=== PATIENT | female | born 2000 | race Caucasian/White ===

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

== ENCOUNTER 2021-05-13 18:00 | Emergency (ER) | payer SELFPAY ==
[~2021-05-13] VITALS: Ht 162.6 cm; Wt 70.2 kg
[~2021-05-13 18:00] MED LIST changes: +ULTRAM50 M1 PO
[2021-05-13] MEDS ORDERED: MELATONIN10 M2 PO (18:14)
[2021-05-13 19:30] VITALS: BP 101/64
== END 2021-05-13 19:30 | disposition home or self-care (01) ==
LOC: ED 18:00
DX: S83.012A Lateral subluxation of left patella, initial encounter (principal); X50.1XXA Overexertion from prolonged static or awkward postures, initial encounter
CPT/HCPCS: J1885

== ENCOUNTER → 2021-07-18 | Outpatient (CLI) | payer SELFPAY ==
[~2021-07-18] MED LIST changes: +MELATONIN10 M2 PO
== END ==
LOC: LAB 19:56
DX: Z20.822 Contact with and (suspected) exposure to COVID-19 (principal)

== ENCOUNTER → 2021-09-24 | Outpatient (CLI) | payer SELFPAY ==
[2021-09-24 18:34] LABS: URINE APPEARANCE CLEAR; URINE BILIRUBIN NEGATIVE (NEGATIVE); URINE BLOOD 250 ery/uL (NEGATIVE); URINE COLOR YELLOW; URINE GLUCOSE NEGATIVE (NEGATIVE); URINE KETONE NEGATIVE (NEGATIVE); URINE LEUKOCYTE ESTERASE NEGATIVE (NEGATIVE); URINE NITRATE NEGATIVE (NEGATIVE); URINE PROTEIN(semi-quant) TRACE mg/dL (NEGATIVE); URINE UROBILINOGEN NORMAL (NORMAL)
[2021-09-24 18:35] LABS: URINE MUCUS PRESENT (NOT PRESENT)
== END ==
LOC: LAB 15:43
PROVIDERS: Family Medicine
DX: R11.2 Nausea with vomiting, unspecified (principal)

== ENCOUNTER → 2022-05-16 | Outpatient (CLI) | payer MEDICAID ==
[~2022-05-16] MED LIST changes: +CLINDAMYCIN 300MG PO; +ONDANSETRON HYDR4 MG PO
== END ==
LOC: LAB 16:16
DX: J02.9 Acute pharyngitis, unspecified (principal)

== ENCOUNTER → 2022-05-23 | Outpatient (CLI) | payer MEDICAID ==
[2022-05-23 17:32] LABS: BASO # 0.09 K/mm3 (0.02-0.10); EOS # 0.44 K/mm3 (0.04-0.40); EOS % 4.8 % (1.0-5.0); HEMATOCRIT 41.2 % (37.0-47.0); HEMOGLOBIN 13.4 g/dL (12.5-16.0); LYMPH# 1.95 K/mm3 (1.50-4.00); MEAN CELL VOLUME 89 fl (78-100); MEAN CORPUSCULAR HEMOGLOBIN 29 pg (27-31); MEAN CORPUSCULAR HGB CONC 33 g/dL (33-37); MONO # 0.83 K/mm3 (0.20-0.80); NEU # 5.89 K/mm3 (1.40-6.50); PLATELET COUNT 293 K/mm3 (130-400); RED BLOOD COUNT 4.64 M/mm3 (4.10-5.30); RED CELL DISTRIBUTION WIDTH 12.4 % (11.5-14.5); WHITE BLOOD COUNT 9.2 K/mm3 (4.8-10.8)
== END ==
LOC: LAB 17:16
PROVIDERS: Nurse Practitioner Family
DX: J02.9 Acute pharyngitis, unspecified (principal)

== ENCOUNTER → 2022-05-27 | Outpatient (CLI) | payer MEDICAID ==
[2022-05-27 14:51] LABS: ALBUMIN 4.3 g/dL (3.5-5.0); POTASSIUM 4.2 mmol/L (3.5-5.1)
[2022-05-27 14:53] LABS: BASO # 0.07 K/mm3 (0.02-0.10); CALCIUM 10.1 mg/dL (8.3-10.5); EOS # 0.37 K/mm3 (0.04-0.40); EOS % 4.6 % (1.0-5.0); HEMATOCRIT 41.2 % (37.0-47.0); HEMOGLOBIN 13.7 g/dL (12.5-16.0); LYMPH# 2.35 K/mm3 (1.50-4.00); MEAN CELL VOLUME 88 fl (78-100); MEAN CORPUSCULAR HEMOGLOBIN 29 pg (27-31); MEAN CORPUSCULAR HGB CONC 33 g/dL (33-37); MEAN PLATELET VOLUME 10.8 fl (7.4-10.4); MONO # 0.47 K/mm3 (0.20-0.80); NEU # 4.72 K/mm3 (1.40-6.50); PLATELET COUNT 312 K/mm3 (130-400); RED BLOOD COUNT 4.66 M/mm3 (4.10-5.30); RED CELL DISTRIBUTION WIDTH 12.3 % (11.5-14.5)
[2022-05-27 14:54] LABS: TOTAL PROTEIN 7.9 g/dL (6.4-8.3)
[2022-05-27 14:56] LABS: TOTAL BILIRUBIN 0.6 mg/dL (0.2-1.2)
[2022-05-27 16:13] LABS: ERYTHROCYTE SEDIMENTATION RATE 15 mm/hr (0-20)
[2022-05-27 17:15] LABS: CLUE CELLS NOT OBSERVED (Not Observd)
== END ==
LOC: LAB 14:34
PROVIDERS: Nurse Practitioner Family
DX: R10.9 Unspecified abdominal pain (principal); R30.9 Painful micturition, unspecified
CPT/HCPCS: Q0111

== ENCOUNTER 2022-05-30 18:52 | Emergency (ER) | payer MEDICAID ==
[~2022-05-30] VITALS: Ht 162.6 cm; Wt 70.0 kg
[~2022-05-30 18:52] MED LIST changes: -CLINDAMYCIN 300MG PO; -ONDANSETRON HYDR4 MG PO
[2022-05-30] MEDS ORDERED: CLINDAMYCIN 300MG PO (19:03)
[2022-05-30] MEDS ORDERED: ONDANSETRON HYDR4 MG PO (19:04)
[2022-05-30 20:18] LABS: BASO # 0.09 K/mm3 (0.02-0.10); EOS # 0.44 K/mm3 (0.04-0.40); EOS % 5.6 % (1.0-5.0); HEMATOCRIT 37.3 % (37.0-47.0); HEMOGLOBIN 12.4 g/dL (12.5-16.0); LYMPH# 2.97 K/mm3 (1.50-4.00); MEAN CELL VOLUME 88 fl (78-100); MEAN CORPUSCULAR HEMOGLOBIN 29 pg (27-31); MEAN CORPUSCULAR HGB CONC 33 g/dL (33-37); MEAN PLATELET VOLUME 11.4 fl (7.4-10.4); NEU # 3.87 K/mm3 (1.40-6.50); PLATELET COUNT 279 K/mm3 (130-400); RED BLOOD COUNT 4.23 M/mm3 (4.10-5.30); RED CELL DISTRIBUTION WIDTH 12.2 % (11.5-14.5); WHITE BLOOD COUNT 7.9 K/mm3 (4.8-10.8)
[2022-05-30 20:25] LABS: ALBUMIN 4.2 g/dL (3.5-5.0)
[2022-05-30 20:26] LABS: POTASSIUM 3.7 mmol/L (3.5-5.1)
[2022-05-30 20:27] LABS: CALCIUM 10.1 mg/dL (8.3-10.5)
[2022-05-30 20:28] LABS: TOTAL PROTEIN 7.4 g/dL (6.4-8.3)
[2022-05-30 20:30] LABS: TOTAL BILIRUBIN 0.3 mg/dL (0.2-1.2)
[2022-05-30 21:57] LABS: URINE APPEARANCE HAZY; URINE BILIRUBIN NEGATIVE (NEGATIVE); URINE BLOOD NEGATIVE (NEGATIVE); URINE COLOR YELLOW; URINE GLUCOSE NEGATIVE (NEGATIVE); URINE KETONE NEGATIVE (NEGATIVE); URINE LEUKOCYTE ESTERASE TRACE (NEGATIVE); URINE NITRATE NEGATIVE (NEGATIVE); URINE PROTEIN(semi-quant) TRACE (NEGATIVE); URINE UROBILINOGEN NORMAL (NORMAL); URINE WBC 0-1 /hpf (0-3)
[2022-05-30 23:15] VITALS: BP 99/65
== END 2022-05-30 23:35 | disposition home or self-care (01) ==
LOC: ED 18:52
PROVIDERS: Family Medicine
DX: N73.9 Female pelvic inflammatory disease, unspecified (principal); Z90.49 Acquired absence of other specified parts of digestive tract; Z32.02 Encounter for pregnancy test, result negative
CPT/HCPCS: J0696; Q9967

== ENCOUNTER → 2022-06-19 | Outpatient (CLI) | payer MEDICAID ==
[~2022-06-19] MED LIST changes: +CLINDAMYCIN 300MG PO; +ONDANSETRON HYDR4 MG PO
== END ==
LOC: RAD 09:31
DX: M25.551 Pain in right hip (principal); M25.562 Pain in left knee

== ENCOUNTER 2022-10-30 16:31 | Emergency (ER) | payer MEDICAID ==
[~2022-10-30] VITALS: Ht 157.5 cm; Wt 61.2 kg
[2022-10-30] MEDS ORDERED: ONDANSETRON HYDR4 MG PO (16:43)
[2022-10-30] MEDS ORDERED: NAPROXEN500 MG PO (16:43)
[2022-10-30] MEDS ORDERED: VIBRAMYCIN HYC100 MG PO (16:53)
[2022-10-30 17:06] VITALS: BP 121/76
== END 2022-10-30 17:07 | disposition home or self-care (01) ==
LOC: ED 16:31
DX: H66.91 Otitis media, unspecified, right ear (principal); Z88.1 Allergy status to other antibiotic agents; Z88.0 Allergy status to penicillin; Z88.6 Allergy status to analgesic agent; Z28.310 Unvaccinated for COVID-19

== ENCOUNTER → 2023-07-16 | Outpatient (CLI) | payer MEDICAID ==
[~2023-07-16] MED LIST changes: +NAPROXEN500 MG PO; +VIBRAMYCIN HYC100 MG PO
== END ==
LOC: RAD 08:42
DX: K76.0 Fatty (change of) liver, not elsewhere classified (principal)

== ENCOUNTER 2023-08-13 07:51 | Outpatient (RCR) | payer MEDICAID | END 2023-09-11 | disposition home or self-care (01) | LOC: PT | DX: S83.004D Unspecified dislocation of right patella, subsequent encounter (principal); X58.XXXD Exposure to other specified factors, subsequent encounter ==

== ENCOUNTER 2023-09-12 08:00 | Outpatient (RCR) | payer MEDICAID | END 2023-10-12 | disposition home or self-care (01) | LOC: PT | DX: S83.004D Unspecified dislocation of right patella, subsequent encounter (principal) ==

== ENCOUNTER → 2023-12-09 | Outpatient (CLI) | payer MEDICAID ==
[2023-12-09 15:31] LABS: BASO # 0.05 K/mm3 (0.02-0.10); EOS # 0.44 K/mm3 (0.04-0.40); EOS % 5.8 % (1.0-5.0); HEMATOCRIT 38.2 % (37.0-47.0); HEMOGLOBIN 12.5 g/dL (12.5-16.0); MEAN CELL VOLUME 88 fl (78-100); MEAN CORPUSCULAR HEMOGLOBIN 29 pg (27-31); MEAN CORPUSCULAR HGB CONC 33 g/dL (33-37); MEAN PLATELET VOLUME 10.8 fl (7.4-10.4); MONO # 0.47 K/mm3 (0.20-0.80); NEU # 4.27 K/mm3 (1.40-6.50); PLATELET COUNT 306 K/mm3 (130-400); RED BLOOD COUNT 4.36 M/mm3 (4.10-5.30); RED CELL DISTRIBUTION WIDTH 12.9 % (11.5-14.5); WHITE BLOOD COUNT 7.5 K/mm3 (4.8-10.8)
[2023-12-09 15:34] LABS: ALBUMIN 4.1 g/dL (3.5-5.0)
[2023-12-09 15:35] LABS: CALCIUM 8.9 mg/dL (8.3-10.5)
[2023-12-09 15:37] LABS: TOTAL PROTEIN 7.3 g/dL (6.4-8.3)
[2023-12-09 15:38] LABS: TOTAL BILIRUBIN 0.3 mg/dL (0.2-1.2)
== END ==
LOC: LAB 15:11
PROVIDERS: Physician Assistant
DX: R51.9 Headache, unspecified (principal)

== ENCOUNTER 2024-03-10 14:11 | Emergency (ER) | payer OTHER ==
[~2024-03-10 14:11] MED LIST changes: +BUSPIRONE5 MG PO; +DESYREL50 MG PO; +HYDROXYZINE HCL25 M1 PO; +KETOROLAC10 MG PO; +PROPRANOLOL ER80 MG PO; +SERTRALINE HYD100 MG PO; +SUMATRIPTAN SUC50 M1 PO; +TYLENOL325 M1 PO
[2024-03-10] MEDS ORDERED: Iohexol 300 - 100 ML VIAL IV ONE (15:23)
[2024-03-10] MEDS ORDERED: NS 60 ML IV ONE (15:23)
[2024-04-29 10:50] LABS: BASO # 0.05 K/mm3 (0.02-0.10); EOS # 0.28 K/mm3 (0.04-0.40); EOS % 3.5 % (1.0-5.0); HEMATOCRIT 40.9 % (37.0-47.0); HEMOGLOBIN 13.5 g/dL (12.5-16.0); LYMPH# 2.22 K/mm3 (1.50-4.00); MEAN CELL VOLUME 86 fl (78-100); MEAN CORPUSCULAR HEMOGLOBIN 28 pg (27-31); MEAN CORPUSCULAR HGB CONC 33 g/dL (33-37); MONO # 0.53 K/mm3 (0.20-0.80); NEU # 4.82 K/mm3 (1.40-6.50); PLATELET COUNT 292 K/mm3 (130-400); RED BLOOD COUNT 4.75 M/mm3 (4.10-5.30); RED CELL DISTRIBUTION WIDTH 12.8 % (11.5-14.5); WHITE BLOOD COUNT 7.9 K/mm3 (4.8-10.8)
[2024-04-29 11:44] LABS: ALBUMIN 4.1 g/dL (3.5-5.0); ALT/SGPT 20 U/L (0-55); AST-SGOT 19 U/L (5-34); CALCIUM 9.5 mg/dL (8.3-10.5); CARBON DIOXIDE 21 mmol/L (22-29); GLUCOSE 87 mg/dL (65-105); LIPASE 11 U/L (8-78); SODIUM 137 mmol/L (136-145); TOTAL BILIRUBIN 0.5 mg/dL (0.2-1.2); TOTAL PROTEIN 7.3 g/dL (6.4-8.3)
== END 2024-03-10 17:32 | disposition home or self-care (01) ==
LOC: ED 14:11
PROVIDERS: Family Medicine
DX: K76.0 Fatty (change of) liver, not elsewhere classified (principal)
CPT/HCPCS: Q9967

== ENCOUNTER 2024-07-09 10:32 | Emergency (ER) | payer OTHER ==
[~2024-07-09 10:32] MED LIST changes: +AZITHROMYCIN 250MGPK PO; +CIPROFLOX-DEXA7.5 ML OT; +ZOFRAN ODT4 MG PO
[2024-07-09 11:25] VITALS: BP 116/87
== END 2024-07-09 11:27 | disposition home or self-care (01) ==
LOC: ED 10:32
DX: H66.92 Otitis media, unspecified, left ear (principal)

== ENCOUNTER 2024-08-01 09:11 | Emergency (ER) | payer OTHER ==
[~2024-08-01] VITALS: Ht 157.5 cm; Wt 73.7 kg
[2024-08-01 10:26] VITALS: BP 110/75
== END 2024-08-01 10:35 | disposition home or self-care (01) ==
LOC: ED 09:11
DX: M25.561 Pain in right knee (principal)

== ENCOUNTER 2024-09-04 12:57 | Emergency (ER) | payer OTHER ==
[~2024-09-04] VITALS: Ht 160 cm; Wt 77.3 kg
[2024-09-04 13:51] LABS: BASO # 0.04 K/mm3 (0.02-0.10); EOS # 0.18 K/mm3 (0.04-0.40); EOS % 4.4 % (1.0-5.0); HEMATOCRIT 43.6 % (37.0-47.0); HEMOGLOBIN 14.3 g/dL (12.5-16.0); LYMPH# 0.74 K/mm3 (1.50-4.00); MEAN CELL VOLUME 89 fl (78-100); MEAN CORPUSCULAR HEMOGLOBIN 29 pg (27-31); MEAN CORPUSCULAR HGB CONC 33 g/dL (33-37); MEAN PLATELET VOLUME 11.7 fl (7.4-10.4); MONO # 0.33 K/mm3 (0.20-0.80); NEU # 2.77 K/mm3 (1.40-6.50); PLATELET COUNT 268 K/mm3 (130-400); RED BLOOD COUNT 4.91 M/mm3 (4.10-5.30); RED CELL DISTRIBUTION WIDTH 12.4 % (11.5-14.5); WHITE BLOOD COUNT 4.1 K/mm3 (4.8-10.8)
[2024-09-04 13:58] LABS: ALBUMIN 4.5 g/dL (3.5-5.0)
[2024-09-04 14:03] LABS: TOTAL BILIRUBIN 0.6 mg/dL (0.2-1.2)
[2024-09-04 15:28] VITALS: BP 113/76
== END 2024-09-04 15:34 ==
LOC: ED 12:57
PROVIDERS: Family Medicine
DX: J06.9 Acute upper respiratory infection, unspecified (principal); K76.0 Fatty (change of) liver, not elsewhere classified; R11.10 Vomiting, unspecified